=== PATIENT | female | born 1980 | race African-American/Black ===

== ENCOUNTER 2018-08-06 16:06 | Emergency (ER) | payer OTHER ==
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
[2018-08-06 16:13] VITALS: BP 104/64; PULSE 82; TEMP 98; BMI 24.1
[2018-08-06] MEDS ORDERED: KETOROLAC TROMETHAMINE 60 MG/2 ML VIAL IM ONE (16:43)
[2018-08-06] MEDS ORDERED: KETOROLAC TROMETHAMINE 60 MG/2 ML VIAL ONE (16:46)
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
== END 2018-08-06 17:13 | disposition home or self-care (01) ==
LOC: JERFT 16:06
PROC: 3E0233Z Introduction of Anti-inflammatory into Muscle, Percutaneous Approach (ICD-10-PCS; principal; 2018-08-06)
DX: S16.1XXA Strain of muscle, fascia and tendon at neck level, initial encounter (principal); S39.012A Strain of muscle, fascia and tendon of lower back, initial encounter; V43.52XA Car driver injured in collision with other type car in traffic accident, initial encounter; Y93.89 Activity, other specified; Y92.410 Unspecified street and highway as the place of occurrence of the external cause; F17.210 Nicotine dependence, cigarettes, uncomplicated
CPT/HCPCS: 99281-25

== ENCOUNTER 2020-07-06 19:51 | Emergency (ER) | payer OTHER ==
[2020-07-06 19:59] VITALS: BP 128/88; PULSE 90; TEMP 98.1; BMI 22.9
[2020-07-06] MEDS ORDERED: ACETAMINOPHEN 325 MG TABLET (FP) PO ONE (20:31)
[2020-07-06] MEDS ORDERED: ACETAMINOPHEN 325 MG TABLET (FP) ONE (20:36)
[2020-07-06] MEDS ORDERED: IBUPROFEN 600 MG TABLET (FP) PO ONE ×2 (22:42→22:48)
[2020-07-06] MEDS ORDERED: buPROPion HCL 75 MG TABLET PO ONE (22:42)
[2020-07-06] MEDS ORDERED: CITALOPRAM HYDROBROMIDE 20 MG TABLET PO ONE (22:42)
[2020-07-06] MEDS ORDERED: CITALOPRAM HYDROBROMIDE 10 MG TABLET ONE (22:48)
[2020-07-06] MEDS ORDERED: buPROPion HCL 100 MG TABLET ONE (22:48)
== END 2020-07-06 22:54 ==
LOC: JER 19:51
DX: S92.354A Nondisplaced fracture of fifth metatarsal bone, right foot, initial encounter for closed fracture (principal)
CPT/HCPCS: 36415; 70360-TC-FY; 70450-TC; 70486-TC; 73130-TC-RT-FY; 84703; 99285-25

== ENCOUNTER 2020-11-21 10:14 | Emergency (ER) | payer OTHER ==
[2020-11-21 10:24] VITALS: BP 110/72; PULSE 78; TEMP 98.2; BMI 23.3
[2020-11-21] MEDS ORDERED: ONDANSETRON 4 MG/2 ML VIAL IVPUSH ONE (11:00)
[2020-11-21] MEDS ORDERED: ONDANSETRON 4 MG/2 ML VIAL ONE (11:11)
[2020-11-21 11:34] LABS: BASO % 0.6 % (0-2.0); EOS % 0.3 % (0-4.5); HEMATOCRIT 39.7 % (32.4-45.2); HEMOGLOBIN 13.3 GM/dL (10.7-15.3); LYMPH % 22.9 % (8-40); MCH 31.7 pg (25.7-33.7); MCHC 33.4 g/dl (32.0-36.0); MEAN CELL VOLUME 94.7 fl (80-96); MEAN PLT VOLUME 7.7 fl (7.5-11.1); MONO % 6.5 % (3.8-10.2); NEUT % 69.7 % (42.8-82.8); PLATELET COUNT 186 10^3/uL (134-434); RBC 4.19 M/mm3 (3.60-5.2); RDW 15.1 % (11.6-15.6); WHITE BLOOD COUNT 5.2 K/mm3 (4.0-10.0)
[2020-11-21 11:48] LABS: EPI CELLS >36 /uL (0-25.1); HYALINE CASTS 3 /uL (0-3.1); URINE APPEARANCE CLEAR; URINE BACTERIA 346 /uL (0-1359); URINE BILIRUBIN NEGATIVE (NEGATIVE); URINE COLOR YELLOW; URINE GLUCOSE (UA) NEGATIVE (NEGATIVE); URINE KETONE 2+ (NEGATIVE); URINE LEUK ESTERASE TRACE (NEGATIVE); URINE NITRITE NEGATIVE (NEGATIVE); URINE PROTEIN TRACE (NEGATIVE); URINE WBC 17 /uL (0-25.8)
[2020-11-21 11:50] LABS: HCG,QUALITATIVE URINE Negative
[2020-11-21 11:54] LABS: ALBUMIN 3.9 g/dl (3.4-5.0); CALCIUM 9.2 mg/dL (8.5-10.1)
[2020-11-21 11:55] LABS: BLOOD UREA NITROGEN 7.2 mg/dL (7-18)
[2020-11-21 11:57] LABS: CREATININE 0.7 mg/dL (0.55-1.3)
[2020-11-21 11:59] LABS: BILIRUBIN,TOTAL 0.5 mg/dL (0.2-1)
[2020-11-21 17:04] LABS: URINE RBC 64.1 /uL (0-23.9)
== END 2020-11-21 15:06 | disposition home or self-care (01) ==
LOC: JER 10:14
PROC: 3E033NZ Introduction of Analgesics, Hypnotics, Sedatives into Peripheral Vein, Percutaneous Approach (ICD-10-PCS; principal; 2020-11-21)
DX: N83.201 Unspecified ovarian cyst, right side (principal)
CPT/HCPCS: 36415; 74177-TC; 76830-TC; 80053; 81003; 83690; 84703; 85025; 87086; 96374; 99284-25; Q9967

== ENCOUNTER 2020-12-03 09:08 | Emergency (ER) | payer OTHER ==
[2020-12-03 09:13] VITALS: BP 135/88; PULSE 76; TEMP 98.1; BMI 22.4
[2020-12-03] MEDS ORDERED: ACETAMINOPHEN 325 MG TABLET (FP) PO ONE (09:51)
[2020-12-03] MEDS ORDERED: IBUPROFEN 600 MG TABLET (FP) PO ONE ×2 (09:51→10:14)
[2020-12-03] MEDS ORDERED: ACETAMINOPHEN 325 MG TABLET (FP) ONE (10:14)
[2020-12-03 11:02] LABS: BASO % 0.9 % (0-2.0); EOS % 0.6 % (0-4.5); HEMATOCRIT 35.8 % (32.4-45.2); HEMOGLOBIN 12.2 GM/dL (10.7-15.3); MCHC 34.1 g/dl (32.0-36.0); MEAN CELL VOLUME 93.8 fl (80-96); MEAN PLT VOLUME 7.1 fl (7.5-11.1); MONO % 6.4 % (3.8-10.2); NEUT % 58.1 % (42.8-82.8); PLATELET COUNT 280 10^3/uL (134-434); RBC 3.81 M/mm3 (3.60-5.2); RDW 15.3 % (11.6-15.6); WHITE BLOOD COUNT 4.2 K/mm3 (4.0-10.0)
[2020-12-03 11:20] LABS: CHLORIDE 107 mmol/L (98-107); SODIUM 140 mmol/L (136-145)
[2020-12-03 11:22] LABS: ALBUMIN 3.5 g/dl (3.4-5.0); CALCIUM 8.9 mg/dL (8.5-10.1)
[2020-12-03 11:23] LABS: ANION GAP 6 MMOL/L (8-16); CO2 28 mmol/L (21-32); GLUCOSE,RANDOM 83 mg/dL (74-106)
[2020-12-03 11:26] LABS: CREATININE 0.7 mg/dL (0.55-1.3); SGOT/AST 39 U/L (15-37); SGPT/ALT 42 U/L (13-61)
[2020-12-03 11:27] LABS: BILIRUBIN,TOTAL 0.4 mg/dL (0.2-1); TOT PROT 6.6 g/dl (6.4-8.2)
[2020-12-03 11:28] LABS: ALK PHOS 77 U/L (45-117)
== END 2020-12-03 12:01 | disposition home or self-care (01) ==
LOC: JER 09:08
DX: R07.89 Other chest pain (principal)
CPT/HCPCS: 36415; 71045-TC-FY; 80053; 84484; 85025; 93005; 93010; 99284-25

== ENCOUNTER 2020-12-06 23:44 | Emergency (ER) | payer OTHER ==
[2020-12-06 23:53] VITALS: BP 129/84; PULSE 76; TEMP 98.2; BMI 22.4
[2020-12-07] MEDS ORDERED: KETOROLAC TROMETHAMINE 30 MG/1 ML VIAL IM ONE (01:25)
[2020-12-07] MEDS ORDERED: KETOROLAC TROMETHAMINE 30 MG/1 ML VIAL ONE (01:28)
== END 2020-12-07 01:44 | disposition home or self-care (01) ==
LOC: JER 23:44
PROC: 3E0233Z Introduction of Anti-inflammatory into Muscle, Percutaneous Approach (ICD-10-PCS; principal; 2020-12-07)
DX: G89.29 Other chronic pain (principal); S20.212A Contusion of left front wall of thorax, initial encounter
CPT/HCPCS: 99283-25